=== PATIENT | female | born 1960 | race Caucasian/White ===

== ENCOUNTER 2018-11-03 18:49 | Observation (INO) | payer OTHER ==
--- NOTE | 2018-11-03 19:51 | ER ---
Nurse's Notes [facility] Name: Chiqui Hunt Age: 57 yrs Sex: Female : 1960 Arrival Date: 11/03/2018 Time: 18:52 Bed 20 Private MD: Diagnosis: Type 2 diabetes mellitus;Essential (primary) hypertension;Chest pain, unspecified;Unspecified kidney failure;Hypokalemia Presentation: 11/03 18:55 Presenting complaint: EMS states: pt complaining of bilateral armpit pain that radiates hj to the upper back area, intermittent that started last 8 am today; BGL- 470; 20g R wrist; BP- 144/74; HR- 90; 97\T\ RA- RR- 12;. Transition of care: patient was not received from another setting of care. Onset of symptoms was November 03, 2018 at 08:00. Risk Assessment: Do you want to hurt yourself or someone else? Patient reports no desire to harm self or others. Initial Sepsis Screen: Does the patient meet any 2 criteria? No. Patient's initial sepsis screen is negative. Does the patient have a suspected source of infection? No. Patient's initial sepsis screen is negative. Care prior to arrival: IV initiated. 20 GA, in the right wrist, Glucose check: 470. 18:55 Method Of Arrival: EMS: [facility] 18:55 Acuity: BEVERLEY 3 hj Triage Assessment: 19:07 General: Appears in no apparent distress. uncomfortable, Behavior is calm, cooperative, hj appropriate for age. Pain: Denies pain. Historical: - Allergies: 19:06 No Known Allergies; hj - Home Meds: 19:52 losartan 100 mg oral tab 1 tab once daily [Active]; metoprolol succinate 100 mg oral ed1 Tb24 1 tab once daily [Active]; glipizide-metformin 5-500 mg oral tab 1 tab 2 times per day [Active]; atorvastatin 40 mg oral tab 1 tab once daily [Active]; isosorbide mononitrate 30 mg Oral Tb24 1 tab once daily [Active]; hydrochlorothiazide 12.5 mg Oral tab 1 tab once daily [Active]; clopidogrel 75 mg oral tab 1 tab once daily [Active]; Januvia 100 mg oral tab 1 tab once daily [Active]; nitroglycerin 0.4 mg SL subl 1 tab every 5 minutes [Active]; - PMHx: 19:07 Hypertension; Diabetes - NIDDM; Myocardial infarction; hj - Immunization history:: Adult Immunizations up to date. - Social history:: Smoking status: Patient/guardian denies using tobacco, Patient/guardian denies using alcohol. - Ebola Screening: : Patient negative for fever greater than or equal to 101.5 degrees Fahrenheit, and additional compatible Ebola Virus Disease symptoms Patient denies exposure to infectious person Patient denies travel to an Ebola-affected area in the 21 days before illness onset. - Family history:: not pertinent. Screenin:07 Abuse screen: Denies threats or abuse. Denies injuries from another. Nutritional hj screening: No deficits noted. Tuberculosis screening: No symptoms or risk factors identified. Fall Risk None identified. Assessment: 19:48 General: Appears in no apparent distress. Behavior is calm, cooperative. Pain: Denies ed1 pain. Neuro: Level of Consciousness is awake, alert, obeys commands, Oriented to person, place, time, situation, Denies weakness blurred vision dizziness, headache. Cardiovascular: Reports chest pain that comes and goes Denies chest pain, Heart tones S1 S2 present. Respiratory: Airway is patent Trachea midline Respiratory effort is even, unlabored, Respiratory pattern is regular, symmetrical, Breath sounds are clear bilaterally. GI: No signs and/or symptoms were reported involving the gastrointestinal system. : No signs and/or symptoms were reported regarding the genitourinary system. EENT: No signs and/or symptoms were reported regarding the EENT system. Derm: Skin is intact, is healthy with good turgor, Skin is dry, Skin is normal, Skin temperature is warm. Musculoskeletal: Circulation, motion, and sensation intact. Range of motion: intact in all extremities. 21:00 Reassessment: Patient appears in no apparent distress at this time. No changes from ed1 previously documented assessment. Patient and/or family updated on plan of care and expected duration. Pain level reassessed. Patient is alert, oriented x 3, equal unlabored respirations, skin warm/dry/pink. Patient states symptoms have not improved. 22:33 Reassessment: Patient appears in no apparent distress at this time. No changes from ed1 previously documented assessment. Patient and/or family updated on plan of care and expected duration. Pain level reassessed. Patient is alert, oriented x 3, equal unlabored respirations, skin warm/dry/pink. Patient states symptoms have not improved. Vital Signs: 19:10 BP 105 / 64; Pulse 86; Resp 18; Temp 97.9(O); Pulse Ox 98% on R/A; Weight 80.29 kg; ed1 Height 5 ft. 3 in. (160.02 cm); Pain 0/10; 21:00 BP 114 / 71; Pulse 79; Resp 18; Pulse Ox 100% on R/A; Pain 0/10; ed1 22:33 BP 126 / 77; Pulse 85; Resp 19; Pulse Ox 98% on R/A; Pain 0/10; ed1 19:10 Body Mass Index 31.35 (80.29 kg, 160.02 cm) ed1 ED Course: 18:52 Patient arrived in ED. hj 18:57 Triage completed. hj 19:07 Arm band placed on right wrist. hj 19:07 Patient has correct armband on for positive identification. Bed in low position. Call hj light in reach. Side rails up X 1. 19:11 Gamaliel Omer MD is Attending Physician. serina 19:48 Jagruti Mcleod RN is Primary Nurse. ed1 19:48 Maintain EMS IV. Dressing intact. Good blood return noted. Site clean \T\ dry. Gauge \T\ ed 1 site: 20 g right wrist. 19:49 Glo May MD is Hospitalizing Provider. serina 20:19 XRAY Chest (1 view) In Process Unspecified. EDMS 22:33 Resting quietly. Awaiting bed assignment. ed1 04/09 00:20 No provider procedures requiring assistance completed. Patient admitted, IV remains in ed1 place. intact, No redness/swelling at site. Administered Medications: 11/03 21:14 Drug: NS 0.9% 500 ml Route: IV; Rate: bolus; Site: right wrist; ed1 22:34 Follow up: IV Status: Completed infusion; IV Intake: 500ml ed1 21:15 Drug: NS 0.9% 1000 ml Route: IV; Rate: 125 ml/hr; Site: right wrist; ed1 09 00:22 Follow up: IV Status: Infusion continued upon admission ed1 11/03 21:15 Drug: Pepcid 20 mg Route: IVP; Site: right wrist; ed1 22:35 Follow up: Response: No adverse reaction ed1 21:15 Drug: Lovenox 1 mg/kg Route: Sub-Q; Site: right lower abdomen; ed1 22:35 Follow up: Response: No adverse reaction ed1 21:16 Drug: Insulin Regular Human 8 units {Co-Signature: aa1 (Norma Geiger RN).} Route: ed1 IVP; Site: right wrist; 23:04 Follow up: Response: No adverse reaction; Blood sugar is lowered ed1 21:16 Drug: Lopressor 25 mg Route: PO; ed1 22:34 Follow up: Response: No adverse reaction ed1 21:47 Drug: Potassium Effervescent Tablet 25 mEq Route: PO; ed1 22:33 Follow up: Response: No adverse reaction ed1 Point of Care Testing: Blood Glucose: 18:52 Blood Glucose: 351 mg/dL; hj 23:04 Blood Glucose: 155 mg/dL; ed1 Ranges: Intake: 22:34 IV: 500ml; Total: 500ml. ed1 Outcome: 19:50 Decision to Hospitalize by Provider. serina 04 00:20 Admitted to Med/surg accompanied by nurse, via wheelchair, room 220, with chart, Report ed1 called to ROBINA Bryan Condition: good Discharge instructions given to patient, Instructed on the need for admit, Demonstrated understanding of instructions. 00:22 Patient left the ED. ed1 Signatures: Dispatcher [employer] Gamaliel Noel MD MD cha Riggs, Erika, RN RN ed1 Elmo Gil RN RN Norma Geiger RN aa1 Corrections: (The following items were deleted from the chart) 11/03 23:33 19:07 PSHx: Unable to obtain; ed1
--- NOTE | 2018-11-03 19:51 | EDPHYS ---
Physician Documentation [facility] Name: Chiqui Hunt Age: 57 yrs Sex: Female : 1960 Arrival Date: 11/03/2018 Time: 18:52 Bed 20 Private MD: ED Physician Gamaliel Omer HPI: 11/03 19:46 This 57 yrs old Female presents to ER via EMS with complaints of High Blood serina Sugar. 19:46 The patient or guardian reports hyperglycemia. Onset: The symptoms/episode serina began/occurred 3 day(s) ago. Associated signs and symptoms: Pertinent positives: polydipsia. Current symptoms: In the emergency department the patient's symptoms have resolved. The patient has not experienced similar symptoms in the past. Historical: - Allergies: 19:06 No Known Allergies; hj - Home Meds: 19:52 losartan 100 mg oral tab 1 tab once daily [Active]; metoprolol succinate 100 mg oral ed1 Tb24 1 tab once daily [Active]; glipizide-metformin 5-500 mg oral tab 1 tab 2 times per day [Active]; atorvastatin 40 mg oral tab 1 tab once daily [Active]; isosorbide mononitrate 30 mg Oral Tb24 1 tab once daily [Active]; hydrochlorothiazide 12.5 mg Oral tab 1 tab once daily [Active]; clopidogrel 75 mg oral tab 1 tab once daily [Active]; Januvia 100 mg oral tab 1 tab once daily [Active]; nitroglycerin 0.4 mg SL subl 1 tab every 5 minutes [Active]; - PMHx: 19:07 Hypertension; Diabetes - NIDDM; Myocardial infarction; hj - Immunization history:: Adult Immunizations up to date. - Social history:: Smoking status: Patient/guardian denies using tobacco, Patient/guardian denies using alcohol. - Ebola Screening: : Patient negative for fever greater than or equal to 101.5 degrees Fahrenheit, and additional compatible Ebola Virus Disease symptoms Patient denies exposure to infectious person Patient denies travel to an Ebola-affected area in the 21 days before illness onset. - Family history:: not pertinent. ROS: 19:46 Constitutional: Negative for fever, chills, and weight loss, Eyes: Negative for injury, serina pain, redness, and discharge, ENT: Negative for injury, pain, and discharge, Neck: Negative for injury, pain, and swelling, Respiratory: Negative for shortness of breath, cough, wheezing, and pleuritic chest pain, Abdomen/GI: Negative for abdominal pain, nausea, vomiting, diarrhea, and constipation, Back: Negative for injury and pain, : Negative for injury, bleeding, discharge, and swelling, MS/Extremity: Negative for injury and deformity, Skin: Negative for injury, rash, and discoloration, Neuro: Negative for headache, weakness, numbness, tingling, and seizure, Psych: Negative for depression, anxiety, suicide ideation, homicidal ideation, and hallucinations, Allergy/Immunology: Negative for hives, rash, and allergies, Endocrine: Negative for neck swelling, polydipsia, polyuria, polyphagia, and marked weight changes, Hematologic/Lymphatic: Negative for swollen nodes, abnormal bleeding, and unusual bruising. 19:46 Cardiovascular: Positive for chest pain. 19:46 : Positive for 19:46 MS/extremity: Positive for pain, of the back of left arm, back of right arm and posterior chest. Exam: 19:46 Constitutional: This is a well developed, well nourished patient who is awake, alert, serina and in no acute distress. Head/Face: Normocephalic, atraumatic. Eyes: Pupils equal round and reactive to light, extra-ocular motions intact. Lids and lashes normal. Conjunctiva and sclera are non-icteric and not injected. Cornea within normal limits. Periorbital areas with no swelling, redness, or edema. ENT: Nares patent. No nasal discharge, no septal abnormalities noted. Tympanic membranes are normal and external auditory canals are clear. Oropharynx with no redness, swelling, or masses, exudates, or evidence of obstruction, uvula midline. Mucous membranes moist. Neck: Trachea midline, no thyromegaly or masses palpated, and no cervical lymphadenopathy. Supple, full range of motion without nuchal rigidity, or vertebral point tenderness. No Meningismus. Chest/axilla: Normal chest wall appearance and motion. Nontender with no deformity. No lesions are appreciated. Cardiovascular: Regular rate and rhythm with a normal S1 and S2. No gallops, murmurs, or rubs. Normal PMI, no JVD. No pulse deficits. Respiratory: Lungs have equal breath sounds bilaterally, clear to auscultation and percussion. No rales, rhonchi or wheezes noted. No increased work of breathing, no retractions or nasal flaring. Abdomen/GI: Soft, non-tender, with normal bowel sounds. No distension or tympany. No guarding or rebound. No evidence of tenderness throughout. Back: No spinal tenderness. No costovertebral tenderness. Full range of motion. Skin: Warm, dry with normal turgor. Normal color with no rashes, no lesions, and no evidence of cellulitis. MS/ Extremity: Pulses equal, no cyanosis. Neurovascular intact. Full, normal range of motion. Neuro: Awake and alert, GCS 15, oriented to person, place, time, and situation. Cranial nerves II-XII grossly intact. Motor strength 5/5 in all extremities. Sensory grossly intact. Cerebellar exam normal. Normal gait. Psych: Awake, alert, with orientation to person, place and time. Behavior, mood, and affect are within normal limits. Vital Signs: 19:10 BP 105 / 64; Pulse 86; Resp 18; Temp 97.9(O); Pulse Ox 98% on R/A; Weight 80.29 kg; ed1 Height 5 ft. 3 in. (160.02 cm); Pain 0/10; 21:00 BP 114 / 71; Pulse 79; Resp 18; Pulse Ox 100% on R/A; Pain 0/10; ed1 22:33 BP 126 / 77; Pulse 85; Resp 19; Pulse Ox 98% on R/A; Pain 0/10; ed1 19:10 Body Mass Index 31.35 (80.29 kg, 160.02 cm) ed1 MDM: 19:11 Patient medically screened. [facility] 19:48 Data reviewed: vital signs, nurses notes, lab test result(s), EKG, radiologic studies, [facility] CT scan, plain films. 11/03 19:46 Order name: Basic Metabolic Panel [facility] 11/03 19:46 Order name: CBC with Diff [facility] 11/03 19:46 Order name: LFT's [facility] 11/03 19:46 Order name: Magnesium [facility] 11/03 19:46 Order name: NT PRO-BNP [facility] 11/03 19:46 Order name: PT-INR; Complete Time: 20:53 [facility] 11/03 19:46 Order name: Troponin (emerg Dept Use Only); Complete Time: 21:08 [facility] 11/03 19:46 Order name: Lipase; Complete Time: 21:08 [facility] 11/03 19:47 Order name: Basic Metabolic Panel; Complete Time: 21:08 [facility] 11/03 19:47 Order name: CBC with Automated Diff; Complete Time: 20:53 [facility] 11/03 19:47 Order name: Liver (Hepatic) Function; Complete Time: 21:08 [facility] 11/03 19:47 Order name: Magnesium; Complete Time: 21:08 [facility] 11/03 19:47 Order name: NT PRO-BNP; Complete Time: 21:08 [facility] 11/03 21:03 Order name: CBC with Automated Diff [facility] 11/03 19:46 Order name: XRAY Chest (1 view); Complete Time: 20:35 [facility] 11/03 21:03 Order name: CBC with Automated Diff [facility] 11/03 21:03 Order name: Comprehensive Metabolic Panel [facility] 11/03 21:03 Order name: Comprehensive Metabolic Panel [facility] 11/03 21:03 Order name: Hemoglobin A1c [facility] 11/03 21:03 Order name: Hemoglobin A1c [facility] 11/03 21:03 Order name: Lipid Profile [facility] 11/03 21:03 Order name: Lipid Profile [facility] 11/03 21:12 Order name: CT Stone Protocol [facility] 11/03 19:46 Order name: EKG; Complete Time: 19:47 [facility] 11/03 19:46 Order name: Cardiac monitoring; Complete Time: 20:03 [facility] 11/03 19:46 Order name: EKG - Nurse/Tech; Complete Time: 19:59 [facility] 11/03 19:46 Order name: IV Saline Lock; Complete Time: 20:38 [facility] 11/03 19:46 Order name: Labs collected and sent; Complete Time: 20:39 [facility] 11/03 19:46 Order name: O2 Per Protocol; Complete Time: 19:59 [facility] 11/03 19:46 Order name: O2 Sat Monitoring; Complete Time: 19:59 [facility] 11/03 21:03 Order name: CONS Pharmacy Consult [facility] 11/03 21:03 Order name: Consistent Carb (ADA) 1800 [address] EDMS Administered Medications: 21:14 Drug: NS 0.9% 500 ml Route: IV; Rate: bolus; Site: right wrist; ed1 22:34 Follow up: IV Status: Completed infusion; IV Intake: 500ml ed1 21:15 Drug: NS 0.9% 1000 ml Route: IV; Rate: 125 ml/hr; Site: right wrist; ed1 11/04 00:22 Follow up: IV Status: Infusion continued upon admission ed1 11/03 21:15 Drug: Pepcid 20 mg Route: IVP; Site: right wrist; ed1 22:35 Follow up: Response: No adverse reaction ed1 21:15 Drug: Lovenox 1 mg/kg Route: Sub-Q; Site: right lower abdomen; ed1 22:35 Follow up: Response: No adverse reaction ed1 21:16 Drug: Insulin Regular Human 8 units {Co-Signature: aa1 (Norma Geiger RN).} Route: ed1 IVP; Site: right wrist; 23:04 Follow up: Response: No adverse reaction; Blood sugar is lowered ed1 21:16 Drug: Lopressor 25 mg Route: PO; ed1 22:34 Follow up: Response: No adverse reaction ed1 21:47 Drug: Potassium Effervescent Tablet 25 mEq Route: PO; ed1 22:33 Follow up: Response: No adverse reaction ed1 Point of Care Testing: Blood Glucose: 18:52 Blood Glucose: 351 mg/dL; hj 23:04 Blood Glucose: 155 mg/dL; ed1 Ranges: Critical Glucose Levels:Adult <50 mg/dl or >400 mg/dl <40 mg/dl or >180 mg/dl Disposition: 11/03/18 19:50 Hospitalization ordered by Glo May for Observation. Preliminary diagnosis are Type 2 diabetes mellitus, Essential (primary) hypertension, Chest pain, unspecified, Unspecified kidney failure, Hypokalemia. - Bed requested for Telemetry/MedSurg (observation). - Status is Observation. ed1 - Condition is Stable. - Problem is new. - Symptoms have improved. UTI on Admission? No Signatures: Dispatcher [employer] EDMS Gamaliel Omer MD MD cha Riggs, Erika RN RN ed1 Elmo Gil RN RN hj Fitzgerald, Diane, RN RN df Norma Geiger RN aa1 Corrections: (The following items were deleted from the chart) 21:10 19:50 Hospitalization Ordered by Glo May MD for Observation. Preliminary [facility] diagnosis is Type 2 diabetes mellitus; Essential (primary) hypertension; Chest pain, unspecified. Bed requested for Telemetry/MedSurg (observation). Status is Observation. Condition is Stable. Problem is new. Symptoms have improved. UTI on Admission? No. serina 23:21 21:10 11/03/2018 19:50 Hospitalization Ordered by Glo May MD for Observation. df Preliminary diagnosis is Type 2 diabetes mellitus; Essential (primary) hypertension; Chest pain, unspecified; Unspecified kidney failure; Hypokalemia. Bed requested for Telemetry/MedSurg (observation). Status is Observation. Condition is Stable. Problem is new. Symptoms have improved. UTI on Admission? No. serina 23:33 19:07 PSHx: Unable to obtain; ed1 11/04 00:22 11/03 23:21 11/03/2018 19:50 Hospitalization Ordered by Glo May MD for ed1 Observation. Preliminary diagnosis is Type 2 diabetes mellitus; Essential (primary) hypertension; Chest pain, unspecified; Unspecified kidney failure; Hypokalemia. Bed requested for Telemetry/MedSurg (observation). Status is Observation. Condition is Stable. Problem is new. Symptoms have improved. UTI on Admission? No. df
--- NOTE | 2018-11-03 20:27 | RAD REPORT ---
EXAM DESCRIPTION: RAD - Chest Single View - 11/03/2018 8:19 pm CLINICAL HISTORY: CHEST PAIN Chest pain. COMPARISON: <Comparisons> FINDINGS: Portable technique limits examination quality. The lungs are grossly clear. The heart is upper limit of normal in size. No displaced fractures. IMPRESSION: No acute intrathoracic process suspected.
[2018-11-03 20:35] LABS: Absolute Lymphocytes (CBC) 3.2 K/uL (0.7-4.9); Absolute Monocytes 0.6 K/uL (0.1-1.3); Absolute Neutrophil 4.8 K/uL (1.8-8.0); Basophils % 0.3 % (0-1.3); Eosinophils % 1.5 % (0-4.4); Hematocrit 41.5 % (36.0-45.0); Lymphocytes % 36.4 % (15.3-44.8); MPV 10.3 fL (7.6-11.3); Monocytes % 7.1 % (3.3-12.3); RBC Red Blood Cell Count 4.81 M/uL (3.86-4.86)
[2018-11-03 20:36] LABS: Protime INR 1.05
[2018-11-03] MEDS ORDERED: MORPHINE 2 MG/ML SYR IV PRN (21:00)
[2018-11-03] MEDS ORDERED: ACETAMINOPHEN 500 MG TAB PO PRN (21:00)
[2018-11-03] MEDS ORDERED: ONDANSETRON 4 MG/2 ML VIAL IV PRN (21:00)
[2018-11-03] MEDS ORDERED: NA CHLORIDE 0.9% 1,000 ML IV SCH (21:00)
[2018-11-03 21:04] LABS: ALT/SGPT 53 U/L (12-78); AST/SGOT 40 U/L (15-37); Albumin 3.5 g/dL (3.4-5.0); Alkaline Phosphatase 204 U/L (45-117); BUN Blood Urea Nitrogen 37 mg/dL (7-18); Bicarbonate 29 mmol/L (21-32); Bilirubin Direct 0.1 mg/dL (0-0.2); Bilirubin Total 0.5 mg/dL (0.2-1.0); Glucose Level 272 mg/dL (74-106); Lipase 412 U/L (73-393); Magnesium 1.9 mg/dL (1.8-2.4); NT PRO-BNP 56 pg/mL (<125); Potassium 3.3 mmol/L (3.5-5.1); Protein, Total 8.1 g/dL (6.4-8.2); Sodium Level 132 mmol/L (136-145); Troponin (Emerg Dept Use Only) < 0.02 ng/mL (0.0-0.045)
[2018-11-03] MEDS ORDERED: ENOXAPARIN 80 MG/0.8 ML SQ ONE (21:12)
[2018-11-03] MEDS ORDERED: METOPROLOL TAR 25 MG TAB ONE (21:12)
[2018-11-03] MEDS ORDERED: INSULIN -REGULAR HUMAN 50 UNIT/0.5 ML ML ONE (21:12)
[2018-11-03] MEDS ORDERED: NA CHLORIDE 0.9% 1,000 ML ONE (21:12)
[2018-11-03] MEDS ORDERED: FAMOTIDINE 20 MG/2 ML VIAL IV ONE (21:13)
[2018-11-03] MEDS ORDERED: POTASSIUM 25 MEQ EFFERV TAB ONE (21:56)
[2018-11-04 00:26] VITALS: BMI 31.0
[2018-11-04] MEDS: NA CHLORIDE 0.9% 1,000 ML IV SCH ×2 (01:17→08:40)
[2018-11-04] MEDS ORDERED: GLIPIZIDE PO SCH (03:00)
[2018-11-04] MEDS ORDERED: HOME MED 1 EA UNK (Metoprolol Succinate [Toprol Xl] 100 MG) PO SCH (03:00)
[2018-11-04] MEDS ORDERED: ATORVASTATIN CALCIUM PO SCH (03:00)
[2018-11-04] MEDS ORDERED: HOME MED 1 EA UNK (Aspirin Chewable [Aspirin Chewable*] 1 TAB) PO SCH (03:00)
[2018-11-04] MEDS ORDERED: CLOPIDOGREL BISULFATE PO SCH (03:00)
[2018-11-04] MEDS ORDERED: HOME MED 1 EA UNK (Sitagliptin Phosphate [Januvia*] 100 MG) PO SCH (03:00)
[2018-11-04] MEDS ORDERED: METFORMIN HCL PO SCH (03:00)
[2018-11-04 03:14] LABS: Urine Appearance CLEAR; Urine Bilirubin NEGATIVE (NEG); Urine Blood NEGATIVE (NEG); Urine Color YELLOW; Urine Glucose TRACE (NEG); Urine Protein NEGATIVE (NEG); Urine Specific Gravity <=1.005 (1.005-1.030); Urine Urobilinogen 0.2 mg/dL (0.2-1.0); Urine pH 5.5 (5.0-7.0)
[2018-11-04 03:39] LABS: Urine Microscopic Reflex ORDER UMIC
[2018-11-04 04:04] VITALS: O2SAT 95
[2018-11-04 04:30] LABS: Urine Bacteria <20 /HPF (<20); Urine Culture Reflex Order REFLEXED; Urine RBC <5 /HPF (NONE SEEN)
[2018-11-04 05:46] LABS: Absolute Lymphocytes (CBC) 2.9 K/uL (0.7-4.9); Absolute Monocytes 0.5 K/uL (0.1-1.3); Absolute Neutrophil 3.2 K/uL (1.8-8.0); Basophils % 0.3 % (0-1.3); Hematocrit 38.3 % (36.0-45.0); Lymphocytes % 43.6 % (15.3-44.8); MPV 10.4 fL (7.6-11.3); RBC Red Blood Cell Count 4.46 M/uL (3.86-4.86)
[2018-11-04 06:05] LABS: ALT/SGPT 54 U/L (12-78); AST/SGOT 46 U/L (15-37); Albumin 3.1 g/dL (3.4-5.0); Alkaline Phosphatase 215 U/L (45-117); BUN Blood Urea Nitrogen 31 mg/dL (7-18); Bicarbonate 25 mmol/L (21-32); Bilirubin Total 0.3 mg/dL (0.2-1.0); Glucose Level 311 mg/dL (74-106); HDL Cholesterol 21 mg/dL (40-60); Potassium 3.5 mmol/L (3.5-5.1); Protein, Total 7.3 g/dL (6.4-8.2); Sodium Level 136 mmol/L (136-145)
[2018-11-04 07:01] VITALS: BP 118/74; TEMP 97.4
--- NOTE | 2018-11-04 08:21 | P.HP ---
Certification for Inpatient Patient admitted to: Observation With expected LOS: <2 Midnights Patient will require the following post-hospital care: None Practitioner: I am a practitioner with admitting privileges, knowledge of patient current condition, hospital course, and medical plan of care. Services: Services provided to patient in accordance with Admission requirements found in Title 42 Section 412.3 of the Code of Federal Regulations Patient History Date of Service: 11/03/18 Reason for admission: Hyperglycemia and severe dehydration with hyponatremia and hypokalemia History of Present Illness: Patient is a 57-year-old female came into the hospital with elevated blood sugars. She was not feeling well and was feeling like she had no energy. She also had an upper respiratory infection. She came into the emergency room and her workup revealed that she had acute renal insufficiency with hyponatremia and hypokalemia. Patient was admitted to the hospital for IV hydration. She also needs to get her blood sugars better controlled. She states her hemoglobin A1c used to be 6-7. However over the last few months it is greater than 13. She needs to get better control of her blood sugars before she continues to get secondary complications of her diabetes. At this time she is clinically doing better. Will hydrate her and advance her diet. If she tolerates it then will plan to discharge her home today. Allergies No Known Allergies Allergy (Verified 11/04/18 00:44) Home Medications: Aspirin Chewable [Aspirin Chewable*] 1 tab PO DAILY 11/04/18 Atorvastatin Calcium [Lipitor] 1 tab PO BEDTIME 11/04/18 Clopidogrel Bisulfate [Plavix*] 1 tab PO DAILY 11/04/18 Cranberry 465 mg PO DAILY 11/04/18 Glipizide/Metformin HCl [Glipizide-Metformin 5-500 mg] 1 tab PO BID 11/04/18 Isosorbide Mononitrate [Isosorbide Mononitrate ER] 1 tab PO DAILY 11/04/18 Losartan Potassium 100 mg PO DAILY 11/04/18 Metoprolol Succinate [Toprol Xl] 100 mg PO DAILY 11/04/18 Sitagliptin Phosphate [Januvia] 100 mg PO DAILY 11/04/18 hydroCHLOROthiazide [Hydrochlorothiazide*] 1 tab PO DAILY 11/04/18 - Past Medical/Surgical History Has patient received pneumonia vaccine in the past: No Diabetic: Yes -: hypertension -: NV -: diabetes - niddm -: cholecystectomy - Family History Father Family History: Reviewed- Non-Contributory - Social History Smoking Status: Former smoker Alcohol use: No CD- Drugs: No Caffeine use: Yes Place of Residence: Home Review of Systems 10-point ROS is otherwise unremarkable Physical Examination - Vital Signs Temperature: 97.4 F Blood Pressure: 118/74 Pulse: 78 Respirations: 18 Pulse Ox (%): 97 - Physical Exam General: Alert, In no apparent distress, Oriented x3 HEENT: Atraumatic, PERRLA, Mucous membr. moist/pink, EOMI, Sclerae nonicteric Neck: Supple, 2+ carotid pulse no bruit, No LAD, Without JVD or thyroid abnormality Respiratory: Clear to auscultation bilaterally, Normal air movement Cardiovascular: Regular rate/rhythm, Normal S1 S2, No murmurs Gastrointestinal: Normal bowel sounds, Soft and benign, Non-distended, No tenderness Musculoskeletal: No clubbing, No swelling, No tenderness Integumentary: No rashes Neurological: Normal gait, Normal speech, Normal strength at 5/5 x4 extr, Normal tone, Sensation intact, Cranial nerves 3-12 intact, Normal affect Lymphatics: No axilla or inguinal lymphadenopathy - Studies Laboratory Data (last 24 hrs) 11/03/18 20:10: PT 12.4, INR 1.05 11/03/18 20:10: WBC 8.8, Hgb 14.0, Hct 41.5, Plt Count 208 11/03/18 20:10: Sodium 132 L, Potassium 3.3 L, BUN 37 H, Creatinine 2.29 H, Glucose 272 H, Magnesium 1.9, Total Bilirubin 0.5, AST 40 H, ALT 53, Alkaline Phosphatase 204 H, Lipase 412 H Assessment & Plan - Problems (Diagnosis) (1) Acute kidney injury Current Visit: Yes Status: Acute (2) Hyponatremia Current Visit: Yes Status: Acute (3) Hypokalemia Current Visit: Yes Status: Acute (4) Hyperglycemia Current Visit: Yes Status: Acute (5) Poorly controlled type 2 diabetes mellitus Current Visit: Yes Status: Acute - Plan Plan: 1. Aggressive IV hydration and hold hydrochlorothiazide 2. Patient needs stricter blood sugar control this and she may need to add long- acting insulin 3. Diabetic education on modifying her diet 4. GI and DVT Discharge Plan: Home Plan to discharge in: 24 Hours - Advance Directives Does patient have a Living Will: No Does patient have a Durable POA for Healthcare: No - Code Status/Comfort Care Code Status Assessed: Yes Code Status: Full Code Critical Care: No Time Spent Managing PTS Care (In Minutes): 40
--- NOTE | 2018-11-04 08:27 | RAD REPORT ---
EXAM DESCRIPTION: US - Renal Ultrasound-Complete - 11/04/2018 8:19 am CLINICAL HISTORY: cystic mass Flank pain COMPARISON: [facility] Protocol dated 11/03/2018 FINDINGS: Both kidneys are normal in size, shape and echotexture. The right kidney measures 13.9 x 6.7 x 6.0 cm. No hydronephrosis, focal mass or perinephric fluid. The left kidney measures 12.3 x 6.1 x 6.0 cm. No hydronephrosis. Exophytic left renal cyst is present measuring 3.7 x 2.9 x 2.5 cm. No worrisome mass seen. The urinary bladder is incompletely distended without gross abnormality seen. IMPRESSION: Exophytic benign-appearing left renal cyst, otherwise negative study.
[2018-11-04] MEDS ORDERED: HOME MED 1 EA UNK (Losartan Potassium [Losartan Potassium] 100 MG) PO SCH (09:00)
[2018-11-04] MEDS ORDERED: ISOSORBIDE MONONITRATE PO SCH (09:00)
[2018-11-04] MEDS ORDERED: CRANBERRY PO SCH (09:00)
--- NOTE | 2018-11-04 10:56 | RAD REPORT ---
EXAM DESCRIPTION: [facility] Protocol CLINICAL HISTORY: 57 years Female, ABD PAIN COMPARISON: None. TECHNIQUE: 3 mm axial images of the abdomen and pelvis were obtained without intravenous contrast. 3 mm sagittal and coronal reformatted images were obtained.. This exam was performed according to our departmental dose-optimization program, which includes autom ated exposure control, adjustment of the mA and/or kV according to patient size and/or use of iterati ve reconstruction technique. INTRAVENOUS CONTRAST: None. FINDINGS: Lung bases: Normal. Liver: There is hepatomegaly with diffuse fatty liver infiltration.. Spleen: Normal. Pancreas: Normal. Gallbladder: Absent. Right adrenal gland: Normal. Left adrenal gland: Normal. Right kidney: Normal. Left kidney: There is a pedunculated mass arising from the midpole left kidney and extending inferior ly. This measures 2.7 x 3.0 x 3.4 cm in maximal AP, transverse, and longitudinal dimension respective ly. This has a density of 9000 units and likely represents a cyst. Confirmation with nonemergent ultr asound recommended. Retroperitoneal structures: There is extensive atherosclerotic disease about the abdominal aorta and its branch vessels. Bowel survey: There is a moderate residual stool in the ascending colon. The appendix is unremarkable . The distal ileum is unremarkable. Urinary bladder: Normal. Uterus and adnexa: Absent. Peritoneal cavity: Normal. Mesentery structures: Normal. Abdominal wall: No hernia. Bony structures: No suspicious lesions. IMPRESSION: 1. Loculated mass left kidney which is likely cystic. Further assessment with a nonemerg ent renal ultrasound recommended. 2. Increased stool in the ascending colon. 3. Hepatomegaly with diffuse fatty liver infiltration. Electronically signed by: Chris Chapman MD 11/03/2018 9:54 PM CDT Due to temporary technical issues with the PACS/Fluency reporting system, reports are being signed by the in house radiologist as a courtesy to ensure prompt reporting. The interpreting radiologist is f ully responsible for the content of the report.
--- NOTE | 2018-11-04 11:45 | EKG ---
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
== END 2018-11-04 10:50 | disposition home or self-care (01) ==
LOC: ER 18:49 → ERHOLD 21:00 → 2ND 23:40
PROVIDERS: ADMIT Hospitalist; ATTEND Hospitalist
DX: N17.9 Acute kidney failure, unspecified (principal); E11.65 Type 2 diabetes mellitus with hyperglycemia; E87.1 Hypo-osmolality and hyponatremia; E86.0 Dehydration; E87.6 Hypokalemia; I10 Essential (primary) hypertension; I25.2 Old myocardial infarction
CPT/HCPCS: 96361; 93005; 87088; 85025 ×2; 87086; 80048; 36415; 83735; 85610; 80061; 82962 ×3; 80076; 83036; 84484; 83690; 80053; 83880; 76377; 74176; 71045; 76770; 96375; 96372; 96374; 99285; J1650; J7030 ×2; G0378 ×2; 81003; 81015